=== PATIENT | male | born 1945 | race Caucasian/White ===

== ENCOUNTER 2017-01-23 08:18 | Outpatient (CLI) | payer MEDICARE, OTHER ==
[2017-01-23 09:02] LABS: eGFR (African) > 60; eGFR (Non-African) > 60
== END 2017-01-23 08:20 ==
LOC: LAB 08:18
PROVIDERS: ATTEND Family Medicine
DX: N40.0 Benign prostatic hyperplasia without lower urinary tract symptoms (principal); E78.00 Pure hypercholesterolemia, unspecified; I10 Essential (primary) hypertension
CPT/HCPCS: 36415; 80053; 80061; 84153

== ENCOUNTER 2017-07-16 09:03 | Outpatient (CLI) | payer MEDICARE, OTHER ==
[2017-07-16 09:26] LABS: BASOPHILS % 0.7 (0.0-1.5); EOSINOPHILS % 6.1 % (0.0-6.8); MEAN CORPUSCULAR HEMOGLOBIN 32.6 pg (28.0-34.0); MEAN CORPUSCULAR VOLUME 93.8 fl (80.0-100.0); MONOCYTES % 20.4 % (0.0-11.0); NEUTROPHILS # 1.4 # k/uL (1.4-7.7)
== END 2017-07-16 11:23 ==
LOC: LAB 09:03
PROVIDERS: ATTEND Family Medicine
DX: I10 Essential (primary) hypertension (principal); E11.9 Type 2 diabetes mellitus without complications
CPT/HCPCS: 36415; 83036; 85025

== ENCOUNTER 2018-01-08 09:46 | Outpatient (CLI) | payer MEDICARE, OTHER ==
[2018-01-08 10:37] LABS: MEAN CORPUSCULAR HEMOGLOBIN 32.4 pg (28.0-34.0)
[2018-01-08 10:56] LABS: eGFR (African) > 60; eGFR (Non-African) > 60
[2018-01-08 11:04] LABS: BASOPHILS % 2 % (0-2); EOSINOPHILS % 3 % (0-7); MONOCYTES % 14 % (0-11); SEGMENTED NEUTROPHILS % 50 % (39-79)
== END 2018-01-08 09:48 ==
LOC: LAB 09:46
PROVIDERS: ATTEND Family Medicine
DX: R41.3 Other amnesia (principal); I10 Essential (primary) hypertension; E78.00 Pure hypercholesterolemia, unspecified; R73.03 Prediabetes; N40.0 Benign prostatic hyperplasia without lower urinary tract symptoms
CPT/HCPCS: 36415; 80053; 80061; 82607; 82746; 83036; 84153; 85025

== ENCOUNTER 2018-07-21 08:09 | Outpatient (CLI) | payer MEDICARE, OTHER | END 2018-07-21 08:10 | LOC: LAB 08:09 | PROVIDERS: ATTEND Family Medicine | DX: R73.03 Prediabetes (principal) | CPT/HCPCS: 36415; 83036 ==

== ENCOUNTER 2019-08-05 09:28 | Outpatient (CLI) | payer MEDICARE, OTHER | END 2019-08-05 09:33 | LOC: LAB 09:28 | PROVIDERS: ATTEND Family Medicine | DX: I25.10 Atherosclerotic heart disease of native coronary artery without angina pectoris (principal); R73.09 Other abnormal glucose | CPT/HCPCS: 36415; 80061; 83036 ==